=== PATIENT | female | born 1985 ===

== ENCOUNTER 2018-02-12 21:56 | Inpatient (IN) | payer MEDICARE, MEDICAID ==
--- NOTE | 2018-02-12 22:32 | ED PDOC ---
HPI: Psych/Substance Abuse Time Seen by Provider: 02/12/18 22:17 Chief Complaint (Nursing): Psychiatric Evaluation Chief Complaint (Provider): Suicidal thoughts History Per: Patient History/Exam Limitations: no limitations Onset/Duration Of Symptoms: Days (today) Additional Complaint(s): Suicidal thoughts. No act on it. No drugs or etoh. Taking her meds. No nausea, vomit, diarrhea. Not homicidal. No weakness. Past Medical History Reviewed: Nursing Documentation, Vital Signs Vital Signs: Last Vital Signs Temp 99.0 F 02/12/18 22:06 Pulse 101 H 02/12/18 22:06 Resp 18 02/12/18 22:06 BP 138/83 02/12/18 22:06 Pulse Ox 98 02/12/18 22:06 - Medical History PMH: Bipolar Disorder, Depression Denies: Diabetes, Hepatitis, HIV, HTN, Chronic Kidney Disease, Seizures, Sexually Transmitted Disease - Surgical History Surgical History: Appendectomy (October,) - Family History Family History: States: Unknown Family Hx, Hypertension - Immunization History Hx Tetanus Toxoid Vaccination: Yes Hx Influenza Vaccination: Yes Hx Pneumococcal Vaccination: No - Home Medications Home Medications: Ambulatory Orders Medication Instructions Recorded Asenapine Maleate [Saphris] 5 mg SL HS 11/22/15 ARIPiprazole [Abilify] 15 mg PO DAILY 03/24/16 Asenapine [Saphris] 5 mg SL DAILY #5 tab 08/29/16 - Allergies Allergies/Adverse Reactions: Allergies Allergy/AdvReac Type Severity Reaction Status Date / Time No Known Allergies Allergy Verified 01/18/16 17:50 Review of Systems ROS Statement: Except As Marked, All Systems Reviewed And Found Negative Psych: Positive for: Depression, Suicidal ideation Physical Exam - Reviewed Nursing Documentation Reviewed: Yes Vital Signs Reviewed: Yes - Physical Exam Appears: Positive for: Non-toxic, No Acute Distress Head Exam: Positive for: ATRAUMATIC, NORMAL INSPECTION, NORMOCEPHALIC Skin: Positive for: Normal Color, Warm, DRY Eye Exam: Positive for: EOMI, Normal appearance, PERRL ENT: Positive for: Normal ENT Inspection Neck: Positive for: Normal, Painless ROM Cardiovascular/Chest: Positive for: Regular Rate, Rhythm Respiratory: Positive for: CNT, Normal Breath Sounds Gastrointestinal/Abdominal: Positive for: Normal Exam, Soft. Negative for: Tenderness Back: Positive for: Normal Inspection. Negative for: L CVA Tenderness, R CVA Tenderness Extremity: Positive for: Normal ROM. Negative for: Tenderness, Pedal Edema Neurologic/Psych: Positive for: Alert, Oriented - ECG O2 Sat by Pulse Oximetry: 98 - Progress ED Course And Treament: 2355: Stable. Dr. Linda to fu crisis. Disposition - Clinical Impression Clinical Impression: Bipolar disorder - Patient ED Disposition Is Patient to be Admitted: Transfer of Care - Disposition Disposition Time: 23:55 Condition: STABLE Patient Signed Over To: Yasmani Linda
--- NOTE | 2018-02-13 00:05 | ED PDOC ---
- Laboratory Results Result Diagrams: 02/13/18 01:16 02/13/18 01:16 - ECG O2 Sat by Pulse Oximetry: 98 Medical Decision Making Medical Decision Makin:00 Patient endorsed to me by Dr. Menendez, pending crisis evaluation. 00:30 -patient was evaluated by crisis and will be admitted, diagnosis bipolar disorder per Dr. Urbina. 03:56 CXR no active disease 04:00 Vital signs are stable. Labs reviewed. In my opinion there are no current acute medical conditions that contraindicate the placement of this patient in a psychiatric unit. Disposition - Clinical Impression Clinical Impression: Bipolar disorder - POA Present On Arrival: None - Disposition Disposition: Routine/Home Disposition Time: 04:00 Condition: STABLE
[2018-02-13 01:40] LABS: BASO # 0.1 K/uL (0.0-0.2); BASO % 0.6 % (0.0-2.0); EOS # 0.3 K/uL (0.0-0.7); EOS % 1.9 % (0.0-4.0); HEMOGLOBIN 12.2 g/dL (12.0-16.0); LYMPH # 3.7 K/uL (1.0-4.3); LYMPH % 27.3 % (20.0-40.0); MEAN CELL VOLUME 81.2 fl (81.0-99.0); MEAN CORPUSCULAR HGB CONC 33.3 g/dL (33.0-37.0); MEAN PLATELET VOLUME 9.6 fl (7.2-11.7); MONO # 0.8 K/uL (0.0-0.8); MONO % 5.5 % (0.0-10.0); NEUT # 8.9 K/uL (1.8-7.0); NEUT % 64.7 % (50.0-75.0); NRBC % 0.1 % (0.0-0.0); RBC 4.53 Mil/uL (3.80-5.20); RED CELL DISTRIBUTION WIDTH 14.7 % (11.5-14.5); WHITE BLOOD COUNT 13.7 K/uL (4.8-10.8)
[2018-02-13 01:56] LABS: ALB/GLOB RATIO 1.4 (1.0-2.1); ALBUMIN 4.2 g/dL (3.5-5.0); ALT/SGPT 62 U/L (9-52); AST/SGOT 35 U/L (14-36); BLOOD UREA NITROGEN 11 mg/dl (7-17); CALCIUM 9.1 mg/dL (8.4-10.2); GFR AFRICAN-AMERICAN > 60; GFR NON-AFRICAN AMERICAN > 60
[2018-02-13 02:12] LABS: BARBITURATES, UR NEGATIVE (NEGATIVE); BENZODIAZEPINES, UR NEGATIVE (NEGATIVE); OPIATES, UR NEGATIVE (NEGATIVE); PHENCYCLIDINE, UR NEGATIVE (NEGATIVE)
[2018-02-13 05:26] LABS: SQUAMOUS EPITHIAL 14 /hpf (0-5); URINE BACTERIA RARE (<OCC); URINE BILIRUBIN NEGATIVE (NEGATIVE); URINE BLOOD NEGATIVE (NEGATIVE); URINE CLARITY CLOUDY (Clear); URINE COLOR YELLOW (YELLOW); URINE GLUCOSE (UA) NEG (Normal); URINE LEUKOCYTE ESTERASE TRACE Leu/uL (Negative); URINE PROTEIN 30 mg/dL (NEGATIVE); URINE UROBILINOGEN 0.2-1.0 mg/dL (0.2-1.0)
[2018-02-13 05:58] VITALS: O2SAT 99
[2018-02-13] MEDS ORDERED: Alum-Mag Hydrox-Simethicone Susp (30 mL) PO PRN (06:01)
[2018-02-13] MEDS ORDERED: Magnesium Hydroxide Susp 30 ml UD PO PRN (06:01)
[2018-02-13] MEDS ORDERED: DiphenhydrAMINE 50 mg/ml Inj IM PRN (06:01)
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
[2018-02-13 08:51] LABS: T4 7.6 ug/dl (5.5-11.0)
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
--- NOTE | 2018-02-13 14:20 | RAD ---
Date of service: 02/13/2018 HISTORY: admit COMPARISON: Chest radiograph 01/18/2016 theNo prior. FINDINGS: LUNGS: No active pulmonary disease. PLEURA: No significant pleural effusion identified, no pneumothorax apparent. CARDIOVASCULAR: Normal. OSSEOUS STRUCTURES: No significant abnormalities. VISUALIZED UPPER ABDOMEN: Normal. OTHER FINDINGS: None. IMPRESSION: No active disease.
[2018-02-13] MEDS ORDERED: ASENAPINE 10 MG SL SCH (22:00)
--- NOTE | 2018-02-14 10:09 | CARD ---
APPROVED REPORT Date of service: 02/13/2018 EKG Measurement Heart [id number] <Conclusion> Normal sinus rhythm with sinus arrhythmia Normal ECG
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
[2018-02-16] MEDS: SAPHRIS 10 MG PO SCH (21:02)
--- NOTE | 2018-02-17 15:43 | PCM.PYCHPN ---
Psychiatric Progress Note - Psychiatric Progress Note Patient seen today, length of contact: pt seen and evaluated Patient Chief Complaint: I feel better with saphris Problems Identified/Issues Discussed: pt evaluated, , more kempt, less labbile feeling less irritable, pt reported benefiting from groups and therapy, learning how to deal with her emotional loss , speech more organized and thought process more goal directed, reported feeling dizzy with seroquel will discontinue pt denied active suicidal ideation on the unit,denied command hallucinations DSM 5 Symptoms Update: bipolar disorder Medication Change: Yes (discontinue seroquel) Medical Record Reviewed: Yes Mental Status Examination - Cognitive Function Orientation: Person, Place Attention: WNL Concentration: WNL Association: WNL Fund of Knowledge: Poor Decription of patient's judgement and insights: poor insight and judgment - Mood Mood: Depressed, Anxious - Affect Affect: Constricted - Speech Speech: Loud, Pressured - Formal Thought Process Formal Thought Process: Circumstantial Psychotic Thoughts and Behaviors: pt denied any current perceptual disturbances, non elicited - Suicidal Ideation Suicidal Ideation: No - Homicidal Ideation Homicidal Ideation: No Goal/Treatment Plan - Goal/Treatment Plan Need for Continued Stay: Severe depression anxiety, Discharge may exacerbated symptoms, Failed transitioning Progress Toward Problem(s) and Goals/Treatment Plan: saphris 20mg qhs discontinue seroquel Group and supportive therapy
[2018-02-17] MEDS: SAPHRIS 10 MG PO SCH (21:02)
--- NOTE | 2018-02-18 06:59 | CP.PCM.PN ---
Subjective - Date & Time of Evaluation Date of Evaluation: 02/18/18 Time of Evaluation: 07:00 - Subjective Subjective: Pt is seen and examined, Pt slept comfortable, with no acute distress. Pt denies suicidal ideation at moment, and feel better. Pt was calm and awake ready to go for group activity. Pt denies Fever, headache, SOB, Chest pain, abd pain , diarrhea, constipation, dysuria, polyuria. Objective - Vital Signs/Intake and Output Vital Signs (last 24 hours): Temp Pulse Resp BP Pulse Ox 97.3 F L 93 H 20 144/90 99 02/17/18 17:00 02/17/18 17:00 02/17/18 17:00 02/17/18 17:00 02/13/18 05:56 - Medications Medications: Current Medications Acetaminophen (Tylenol 325mg Tab) 650 mg PO Q4 PRN PRN Reason: pain level 4-7 Al Hydrox/Mg Hydrox/Simethicone (Maalox Plus 30 Ml) 30 ml PO Q4 PRN PRN Reason: Dyspepsia Diphenhydramine HCl (Benadryl) 50 mg IM Q6 PRN PRN Reason: Extrapyramidal S/S Unable PO Diphenhydramine HCl (Benadryl) 50 mg PO Q6 PRN PRN Reason: Extrapyramidal Symptoms Diphenhydramine HCl (Benadryl) 50 mg PO HS PRN PRN Reason: Sleep Haloperidol (Haldol) 5 mg PO Q4 PRN PRN Reason: Agitation Haloperidol Lactate (Haldol) 5 mg IM Q4 PRN PRN Reason: Agitation, Unable to Take PO Home Med (Patient's Own Medication) 20 unit PO HS DRAKE Last Admin: 02/17/18 21:02 Dose: 20 unit Magnesium Hydroxide (Milk Of Magnesia) 30 ml PO HS PRN PRN Reason: Constipation Trazodone HCl (Desyrel) 50 mg PO HS PRN PRN Reason: Agitation - Labs Labs: 02/13/18 01:16 02/13/18 01:16 - Constitutional Appears: Well, Non-toxic, No Acute Distress - Head Exam Head Exam: ATRAUMATIC, NORMAL INSPECTION, NORMOCEPHALIC - Eye Exam Eye Exam: EOMI, Normal appearance, PERRL Pupil Exam: NORMAL ACCOMODATION, PERRL - ENT Exam ENT Exam: Mucous Membranes Moist, Normal Exam - Neck Exam Neck Exam: Full ROM, Normal Inspection - Respiratory Exam Respiratory Exam: Clear to Ausculation Bilateral, NORMAL BREATHING PATTERN - Cardiovascular Exam Cardiovascular Exam: REGULAR RHYTHM, +S1, +S2 - GI/Abdominal Exam GI & Abdominal Exam: Soft, Normal Bowel Sounds. absent: Tenderness - Extremities Exam Extremities Exam: Full ROM, Normal Capillary Refill, Normal Inspection - Back Exam Back Exam: NORMAL INSPECTION - Neurological Exam Neurological Exam: Alert, Awake, Oriented x3 - Psychiatric Exam Psychiatric exam: Normal Affect, Normal Mood - Skin Skin Exam: Dry, Intact, Normal Color, Warm Assessment and Plan (1) Insomnia Assessment & Plan: Pt is a 32 yo f with PMH bipolar and depression presented to ER due to Insomnia and suicidal ideation Plan Improved Continue management as per Psych Pt is medically stable lab WNL continue monitor for acute change Status: Acute (2) Depression Assessment & Plan: Pt is 32 yo f with PMH of depression was admitted due to suicidal ideation PLan Improved Continue management as per Psych Status: Chronic (3) Bipolar disorder Assessment & Plan: PT is 32 yo f with PMH bipolar disorder and depression was admitted due to suicidal ideation PLan Improved Continue management as per Psych Status: Chronic
[2018-02-18 08:39] VITALS: BP 132/79; PULSE 85; RESP 19; TEMP 97.5
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
== END 2018-02-18 12:11 | disposition home or self-care (01) | DRG 885 ==
LOC: H.ER 21:56 → H.ERHOLD 02-13 00:57 → H.PSYCH 02-13 05:58
PROVIDERS: ADMIT Psychiatry & Neurology Psychiatry; ATTEND Psychiatry & Neurology Psychiatry
PROC: GZHZZZZ Group Psychotherapy (ICD-10-PCS; principal; 2018-02-13)
PROC: GZ58ZZZ Individual Psychotherapy, Cognitive-Behavioral (ICD-10-PCS; 2018-02-13)
DX: F31.64 Bipolar disorder, current episode mixed, severe, with psychotic features (principal); R45.851 Suicidal ideations; G47.00 Insomnia, unspecified; E11.9 Type 2 diabetes mellitus without complications; Z81.8 Family history of other mental and behavioral disorders; Z79.84 Long term (current) use of oral hypoglycemic drugs

== ENCOUNTER 2018-08-06 01:38 | Inpatient (IN) | payer MEDICARE, OTHER ==
[2018-08-06 01:44] VITALS: O2SAT 98
--- NOTE | 2018-08-06 03:17 | ED PDOC ---
HPI: Psych/Substance Abuse Time Seen by Provider: 08/06/18 01:45 Chief Complaint (Nursing): Psychiatric Evaluation Chief Complaint (Provider): Psychiatric Evaluation History Per: Patient History/Exam Limitations: no limitations Associated Symptoms: Depression, Suicidal Thoughts Additional Complaint(s): 33 y/o female with history of bipolar disorder, depression and pre- diabetes presents to ER for evaluation of worsening depression and suicidal ideation for 2 months. Patient reports having no plan. PMD: non provided Past Medical History Reviewed: Historical Data, Nursing Documentation, Vital Signs Vital Signs: Last Vital Signs Temp 98.7 F 08/06/18 01:42 Pulse 99 H 08/06/18 01:42 Resp 18 08/06/18 01:42 BP 132/91 H 08/06/18 01:42 Pulse Ox 98 08/06/18 01:42 - Medical History PMH: Anxiety, Bipolar Disorder, Depression Denies: Diabetes, Hepatitis, HIV, HTN, Chronic Kidney Disease, Seizures, Sexually Transmitted Disease - Surgical History Surgical History: Appendectomy (October,) - Family History Family History: States: Unknown Family Hx, Hypertension - Social History Current smoker - smoking cessation education provided: No Alcohol: None Drugs: Denies - Immunization History Hx Tetanus Toxoid Vaccination: Yes Hx Influenza Vaccination: Yes Hx Pneumococcal Vaccination: No - Home Medications Home Medications: Ambulatory Orders Medication Instructions Recorded Asenapine [Saphris] 10 mg SL HS 02/13/18 traZODone [Desyrel] 50 mg PO HS PRN 30 Days #30 tab 02/18/18 - Allergies Allergies/Adverse Reactions: Allergies Allergy/AdvReac Type Severity Reaction Status Date / Time No Known Allergies Allergy Verified 01/18/16 17:50 Review of Systems ROS Statement: Except As Marked, All Systems Reviewed And Found Negative Psych: Positive for: Depression, Suicidal ideation Physical Exam - Reviewed Nursing Documentation Reviewed: Yes Vital Signs Reviewed: Yes - Physical Exam Appears: Positive for: Non-toxic, No Acute Distress Head Exam: Positive for: ATRAUMATIC, NORMOCEPHALIC Skin: Positive for: Normal Color, Warm, Dry Eye Exam: Positive for: Normal appearance, EOMI, PERRL Neck: Positive for: Normal, Painless ROM, Supple Cardiovascular/Chest: Positive for: Regular Rate, Rhythm. Negative for: Murmur Respiratory: Positive for: Normal Breath Sounds. Negative for: Wheezing Gastrointestinal/Abdominal: Positive for: Normal Exam, Soft. Negative for: Tenderness Back: Positive for: Normal Inspection. Negative for: L CVA Tenderness, R CVA Tenderness Extremity: Positive for: Normal ROM. Negative for: Pedal Edema, Swelling Neurologic/Psych: Positive for: Alert, Oriented (x3) - ECG O2 Sat by Pulse Oximetry: 98 (RA) Pulse Ox Interpretation: Normal Medical Decision Making Medical Decision Makin 33 y/o female with suicidal ideation insetting of bipolar and depression --crisis evaluation --1:1 Observation 0311 Patient evaluated by crisis and will be admitted for bipolar depression. Patient is stable for psychiatric evaluation. Scribe Attestation: Documented by Grace Herron, acting as a scribe for Yasmani Linda MD. Provider Scribe Attestation: All medical record entries made by the Scribe were at my direction and personally dictated by me. I have reviewed the chart and agree that the record accurately reflects my personal performance of the history, physical exam, medical decision making, and the department course for this patient. Disposition - Clinical Impression Clinical Impression: Bipolar depression - Patient ED Disposition Is Patient to be Admitted: Yes - Disposition Disposition Time: 03:11 Condition: FAIR Forms: [facility] (Algerian)
[2018-08-06 04:42] LABS: BASO # 0.1 K/uL (0.0-0.2); BASO % 0.7 % (0.0-2.0); EOS # 0.3 K/uL (0.0-0.7); EOS % 2.3 % (0.0-4.0); HEMOGLOBIN 12.3 g/dL (12.0-16.0); LYMPH # 4.2 K/uL (1.0-4.3); LYMPH % 36.4 % (20.0-40.0); MEAN CELL VOLUME 81.5 fl (81.0-99.0); MEAN CORPUSCULAR HEMOGLOBIN 27.1 pg (27.0-31.0); MEAN CORPUSCULAR HGB CONC 33.2 g/dL (33.0-37.0); MEAN PLATELET VOLUME 9.9 fl (7.2-11.7); MONO # 0.6 K/uL (0.0-0.8); MONO % 5.1 % (0.0-10.0); NEUT # 6.4 K/uL (1.8-7.0); NEUT % 55.5 % (50.0-75.0); NRBC % 0.1 % (0.0-0.0); RBC 4.53 Mil/uL (3.80-5.20); RED CELL DISTRIBUTION WIDTH 15.1 % (11.5-14.5); WHITE BLOOD COUNT 11.5 K/uL (4.8-10.8)
[2018-08-06 05:15] LABS: BARBITURATES, UR NEGATIVE (NEGATIVE); BENZODIAZEPINES, UR NEGATIVE (NEGATIVE); OPIATES, UR NEGATIVE (NEGATIVE); PHENCYCLIDINE, UR NEGATIVE (NEGATIVE)
[2018-08-06 05:39] LABS: ALB/GLOB RATIO 1.4 (1.0-2.1); ALBUMIN 4.4 g/dL (3.5-5.0); ALT/SGPT 72 U/L (9-52); AST/SGOT 47 U/L (14-36); BLOOD UREA NITROGEN 14 mg/dl (7-17); CALCIUM 9.4 mg/dL (8.4-10.2); GFR NON-AFRICAN AMERICAN > 60
[2018-08-06] MEDS ORDERED: Haloperidol Lactate 2 mg/ml Liquid PO PRN (06:58)
[2018-08-06] MEDS ORDERED: DiphenhydrAMINE 50 mg/ml Inj IM PRN (06:58)
[2018-08-06] MEDS ORDERED: Magnesium Hydroxide Susp 30 ml UD PO PRN (06:58)
[2018-08-06] MEDS ORDERED: Alum-Mag Hydrox-Simethicone Susp (30 mL) PO PRN (06:58)
--- NOTE | 2018-08-06 08:03 | RAD ---
Date of service: 08/06/2018 HISTORY: admit COMPARISON: No prior. FINDINGS: LUNGS: No active pulmonary disease. PLEURA: No significant pleural effusion identified, no pneumothorax apparent. CARDIOVASCULAR: No aortic atherosclerotic calcification present. Normal cardiac size. No pulmonary vascular congestion. OSSEOUS STRUCTURES: No significant abnormalities. VISUALIZED UPPER ABDOMEN: Normal. OTHER FINDINGS: None. IMPRESSION: No active disease.
--- NOTE | 2018-08-06 14:54 | CP.PCM.CON ---
History of Present Illness - History of Present Illness History of Present Illness: 33 yo female with history of Bipolar DO admitted to psyche unit because of worsening depression. Review of Systems - Review of Systems All systems: reviewed and no additional remarkable complaints except (aside from those mentioned above, 12 pomt system review negative by me) Past Patient History - Infectious Disease Hx of Infectious Diseases: None - Tetanus Immunizations Tetanus Immunization: Unknown - Past Medical History & Family History Past Medical History?: Yes - Past Social History Smoking Status: Never Smoked Chewing Tobacco Use: No Cigar Use: No Alcohol: None Drugs: Denies - CARDIAC Hx Cardiac Disorders: No Hx Hypertension: No - PULMONARY Hx Tuberculosis: No - NEUROLOGICAL HX Cerebrovascular Accident: No Hx Seizures: No - HEENT Hx HEENT Problems: No - RENAL Hx Chronic Kidney Disease: No - ENDOCRINE/METABOLIC Hx Diabetes Mellitus Type 2: Yes (metformin) - HEMATOLOGICAL/ONCOLOGICAL Hx Cancer: No Hx Human Immunodeficiency Virus (HIV): No - INTEGUMENTARY Hx Dermatological Problems: No - MUSCULOSKELETAL/RHEUMATOLOGICAL Hx Musculoskeletal Disorders: No - GASTROINTESTINAL Hx Gastrointestinal Disorders: No - GENITOURINARY/GYNECOLOGICAL Hx Sexually Transmitted Disorders: No - PSYCHIATRIC Hx Bipolar Disorder: Yes Hx Depression: Yes Hx Substance Use: No - SURGICAL HISTORY Hx Appendectomy: Yes (October,) - ANESTHESIA Hx Anesthesia: Yes Hx Anesthesia Reactions: No Hx Malignant Hyperthermia: No Meds Allergies/Adverse Reactions: Allergies Allergy/AdvReac Type Severity Reaction Status Date / Time No Known Allergies Allergy Verified 01/18/16 17:50 - Medications Medications: Current Medications Acetaminophen (Tylenol 325mg Tab) 650 mg PO Q4 PRN PRN Reason: pain 1-7 Al Hydrox/Mg Hydrox/Simethicone (Maalox Plus 30 Ml) 30 ml PO Q4 PRN PRN Reason: Dyspepsia Diphenhydramine HCl (Benadryl) 50 mg IM Q6 PRN PRN Reason: Extrapyramidal S/S Unable PO Diphenhydramine HCl (Benadryl) 50 mg PO Q6 PRN PRN Reason: Extrapyramidal Symptoms Diphenhydramine HCl (Benadryl) 50 mg PO HS PRN PRN Reason: Sleep Haloperidol Lactate (Haldol) 5 mg PO Q4 PRN PRN Reason: Agitation Haloperidol Lactate (Haldol) 5 mg IM Q4 PRN PRN Reason: Agitation, Unable to Take PO Lorazepam (Ativan) 2 mg IM Q6 PRN PRN Reason: Anxiety/Agitation,Unable PO Lorazepam (Ativan) 1 mg PO Q8 PRN PRN Reason: Anxiety/Agitation Magnesium Hydroxide (Milk Of Magnesia) 30 ml PO HS PRN PRN Reason: Constipation Physical Exam - Constitutional Appears: No Acute Distress - Head Exam Head Exam: ATRAUMATIC - Eye Exam Eye Exam: absent: Scleral icterus - ENT Exam ENT Exam: Mucous Membranes Moist - Neck Exam Neck exam: Negative for: Meningismus - Respiratory Exam Respiratory Exam: absent: Rales, Rhonchi, Wheezes, Respiratory Distress - Cardiovascular Exam Cardiovascular Exam: REGULAR RHYTHM, +S1, +S2 - GI/Abdominal Exam GI & Abdominal Exam: Soft. absent: Tenderness - Rectal Exam Rectal Exam: Deferred - Extremities Exam Extremities exam: Negative for: pedal edema - Neurological Exam Neurological exam: Alert, Oriented x3 - Psychiatric Exam Psychiatric exam: Anxious - Skin Skin Exam: Dry, Intact Results - Vital Signs Recent Vital Signs: Last Vital Signs Temp 98.1 F 08/06/18 06:51 Pulse 840 H 08/06/18 08:38 Resp 16 08/06/18 08:38 BP 112/61 08/06/18 06:51 Pulse Ox 98 08/06/18 06:06 - Labs Result Diagrams: 08/06/18 04:30 08/06/18 04:30 Labs: Laboratory Results - last 24 hr 08/06/18 08/06/18 08/06/18 04:30 04:30 04:30 WBC 11.5 H RBC 4.53 Hgb 12.3 Hct 37.0 MCV 81.5 MCH 27.1 MCHC 33.2 RDW 15.1 H Plt Count 286 MPV 9.9 Neut % (Auto) 55.5 Lymph % (Auto) 36.4 [place] % (Auto) 5.1 Eos % (Auto) 2.3 Baso % (Auto) 0.7 Neut # (Auto) 6.4 Lymph # (Auto) 4.2 [place] # (Auto) 0.6 Eos # (Auto) 0.3 Baso # (Auto) 0.1 Sodium 139 Potassium 3.5 L Chloride 103 Carbon Dioxide 23 Anion Gap 17 BUN 14 Creatinine 0.6 L Est GFR ( Amer) > 60 Est GFR (Non-Af Amer) > 60 Random Glucose 128 H Calcium 9.4 Total Bilirubin 0.2 AST 47 H D ALT 72 H Alkaline Phosphatase 81 Total Protein 7.6 Albumin 4.4 Globulin 3.2 Albumin/Globulin Ratio 1.4 Urine Opiates Screen Negative Urine Methadone Screen Negative Ur Barbiturates Screen Negative Ur Phencyclidine Scrn Negative Ur Amphetamines Screen Negative U Benzodiazepines Scrn Negative U Oth Cocaine Metabols Negative U Cannabinoids Screen Negative Alcohol, Quantitative < 10 Assessment & Plan (1) Depression Status: Chronic Comment: psyche is managing
--- NOTE | 2018-08-06 15:33 | PCM.BM ---
<IsabelLeojenniferKaitlinTyler Tova - Last Filed: 08/06/18 15:35> Treatment assets and liabiliti Patient Assests: cooperative, ADL independent, physically healthy, good support system, negotiates basic needs, cognitively intact Patient Liabilities: relationship conflicts, medical problems - Milieu Protocol Maintain good personal hygiene: daily Encourage regular showers, daily Remind patient to perform daily oral care, daily Assist patient to perform ADL's Conduct patient checks and document Observation sheet: Q15 minutes Maintain personal safety: every shift Educate patient to report safety concerns to staff, every shift Monitor environment for contraband/sharps Medication safety: Monitor for expected outcome, potential side effects: daily, Assess barriers to learning: daily, Assess readiness for medication education: daily <Pablo Lyles - Last Filed: 08/10/18 13:31> Family Contact Family involvement: Family/SO is involved Family contact: Patient agrees to contact, Family has been contacted by patient, Telephone contact initiated by staff Family contact name: Estephania - Mother [phone] Family contact comment: Muff Winder met with pt to discuss pt's treatment on unit. Pt's mother reported that pt had been fine prior to hospitalization and she had not noticed any change on her behavior. Estephania had no questions or comments at this time. - Goals for Treatment Patient goals for treatment: Pt would like to be connected to a therapist to help her manage her obsessive thoughts, find closure and move on with her live life. Discharge/Continuing Care - Education Needs Education Needs: Family Medication, Family Diagnosis/Disease Process, Family Coping Skills, Family Community resources, Family Aftercare Safety Plan, Patient Medication, Patient Diagnosis/Disease Process, Patient Coping Skills, Patient Community resources, Patient Aftercare Safety Plan - Discharge Discharge Criteria: Tolerates medication w/o severe side effects, Free of Suicidal thoughts, Free of paranoid thoughts, Free of agitation, Normal sleep pattern, Reduction of target symptoms Discharge to:: Home, With Family - Treatment Team Participation Patient/Family/SO Statement: 08/10/18 13:30 Pt seen in treatment team on 08/09/18. Pt reported she would like to leave the unit as she no longer has acute symptoms and she has realized that she requires therapy to work on her past trauma. Pt has signed a 48 hour notice and does not meet criteria [place] [facility] [place], so she is being discharged to current outpatient providers. Discussed with Family/SO: Yes Was Patient/Family/SO present at Treatment Team Meeting: Yes
[2018-08-06] MEDS: SAPHRIS 10 MG PO SCH (21:31)
--- NOTE | 2018-08-06 22:19 | PCM.PSYCH ---
Initial Psychiatric Evaluation - Initial Psychiatric Evaluation Chief Complaint (in patient's own words): came to hospital after have a "bipoplar episode" described as becoming overwhelmed " Patient's Reaction to Hospitalization: signed voluntarily History of Present Illness and Precipitating Events: history of inpt and opd treatment for bipolar disorder Current Medications: Active Medications Generic Name Dose Route Start Last Admin Trade Name Freq PRN Reason Stop Dose Admin Acetaminophen 650 mg 08/06/18 06:58 Tylenol 325mg Tab PO Q4 PRN pain 1-7 Al Hydrox/Mg Hydrox/Simethicone 30 ml 08/06/18 06:58 Maalox Plus 30 Ml PO Q4 PRN Dyspepsia Diphenhydramine HCl 50 mg 08/06/18 06:58 Benadryl IM Q6 PRN Extrapyramidal S/S Unable PO Diphenhydramine HCl 50 mg 08/06/18 06:58 Benadryl PO Q6 PRN Extrapyramidal Symptoms Diphenhydramine HCl 50 mg 08/06/18 06:58 08/06/18 21:32 Benadryl PO 50 mg HS PRN Administration Sleep Haloperidol Lactate 5 mg 08/06/18 06:58 Haldol PO Q4 PRN Agitation Haloperidol Lactate 5 mg 08/06/18 06:58 Haldol IM Q4 PRN Agitation, Unable to Take PO Home Med 2 unit 08/06/18 22:00 08/06/18 21:31 Patient's Own Medication PO 2 unit HS DRAKE Administration Lorazepam 2 mg 08/06/18 06:58 Ativan IM Q6 PRN Anxiety/Agitation,Unable PO Lorazepam 1 mg 08/06/18 06:58 Ativan PO Q8 PRN Anxiety/Agitation Magnesium Hydroxide 30 ml 08/06/18 06:58 Milk Of Magnesia PO HS PRN Constipation Past Psychiatric History - Past Psychiatric History Prior Professional Help: inpt/opd History of Abuse: denies History of ETOH/Drug Use: denies History of Family Illness: believes Pertinent Medical Hx (Current Medical&Sleep Prob, Allergies): Allergies Allergy/AdvReac Type Severity Reaction Status Date / Time No Known Allergies Allergy Verified 01/18/16 17:50 Asenapine [Saphris] 10 mg SL HS 02/13/18 Review of Systems - Psychiatric Psychiatric: Abnormal Sleep Pattern, Anxiety, Depression, Mood Swings, Suicidal Ideation Additional comments: without plan contracts for safety Mental Status Examination - Personal Presentation Personal Presentation: Looks stated age - Affect Affect: Constricted - Motor Activity Motor Activity: Psychomotor Retardation - Reliability in Providing Information Reliability in Providing Information: Fair - Speech Speech: Organized - Mood Mood: Depressed, Anxious - Formal Thought Process Formal Thought Process: No Impairment - Obsessions/Compulsions Obsessions: No Compulsions: No - Cognitive Functions Orientation: Person, Place, Situation Sensorium: Alert Attention/Concentration: Attentive Memory: Recent intact, as evidence by: Other, Remote intact, as evidenced by: Other - Risk Risk: Suicidal - Strength & Assets Inventory Strength & Assets Inventory: Intelligence, Cooperative DSM 5 DX - DSM 5 DSM 5 Diagnosis: Bipolar I - Recommended/Plan of Treatment Treatment Recommendations and Plan of Treatment: inpt adm per attending vital signs/clinical observation per protocol-per clinical status prns per protocol restart saphris 10mg x2 po hospitalist consult team to obtain corroborative information discharge planning Projected ELOS: 5-7 days Prognosis: guarded Discharge Plan and Discharge Criteria: safety - Smoking Cessation Smoking Cessation Initiated: No Reason for not providing: defered
--- NOTE | 2018-08-06 22:55 | CARD ---
APPROVED REPORT Date of service: 08/06/2018 EKG Measurement Heart [id number] <Conclusion> Normal sinus rhythm Normal ECG
[2018-08-07 07:37] LABS: LDL CHOLESTEROL 100 mg/dL (0-129)
[2018-08-07 07:38] LABS: BLOOD UREA NITROGEN 10 mg/dl (7-17); CALCIUM 9.2 mg/dL (8.4-10.2); GFR NON-AFRICAN AMERICAN > 60; HDL CHOLESTEROL 47 MG/DL (30-70)
[2018-08-07 07:42] LABS: T4 7.61 ug/dl (5.5-11.0)
--- NOTE | 2018-08-07 19:24 | PCM.PYCHPN ---
Psychiatric Progress Note - Psychiatric Progress Note Patient seen today, length of contact: chart reviewed case discussed with Patient Chief Complaint: pt seen in milieu, reports doing a little better somewhat calmer, slept fair, had visit with mother, staff report pt rx adherent Problems Identified/Issues Discussed: alteration in mood alteration in coping Medical Problems: pt chart Diagnostic Results: per medicine per psychiatry per nursing per social work per recreational therapy DSM 5 Symptoms Update: some improvement mood Medication Change: No Medical Record Reviewed: Yes Consults ordered or reviewed: pt seen by hospitalist Mental Status Examination - Cognitive Function Orientation: Person, Place, Situation Attention: WNL Concentration: WNL Association: [facility] Fund of Knowledge: [facility] Decription of patient's judgement and insights: impaired - Mood Mood: Depressed, Anxious - Affect Affect: Constricted Additional comments: some improvement but remains with anxiety depression - Speech Speech: Soft - Formal Thought Process Formal Thought Process: No Impairment - Suicidal Ideation Plan: contracts for safety - Homicidal Ideation Homicidal Ideation: No Goal/Treatment Plan - Goal/Treatment Plan Need for Continued Stay: Severe depression anxiety, Discharge may exacerbated symptoms Progress Toward Problem(s) and Goals/Treatment Plan: inpt adm per attending vital signs/clinical observation per protocol-per clinical status prns per protocol continue saphris 20mg po hs (pt restarted 08/08/17)-pt requests to be referred to psychotherapy pt seen byhospitalist consult discharge planning Estimated Date of D/C: 08/12/18 - Smoking Cessation Smoking Cessation Initiated: No Reason for not providing: pt defers
[2018-08-07] MEDS: SAPHRIS 10 MG PO SCH (21:33)
--- NOTE | 2018-08-08 14:51 | PCM.PYCHPN ---
Psychiatric Progress Note - Psychiatric Progress Note Patient seen today, length of contact: chart reviewed case discussed with team pt seen Patient Chief Complaint: pt reports spoke to mother, mother reportedly has identified a psychologist with whom she(pt) can see this coming wednesday. pt states she has submitted a 48 hour notice. discussed with pt the purpose of 48 hour notice, significance and potential outsomes discharge or evaluation for possible involuntary commitment. pt defers having had any direct contact with the reported psychologist with whom pt. reportedly has an appointment with this coming wednesday. "my mother told me she sounded like she was a kind nice person". pt has been adherent with medications. seen in unit. Problems Identified/Issues Discussed: alteration in mood alteration in coping Medical Problems: pt chart Diagnostic Results: per medicine per psychiatry per nursing per social work per recreational therapy DSM 5 Symptoms Update: admits mood has been more stable, sleep is improving Medication Change: No Medical Record Reviewed: Yes Consults ordered or reviewed: pt evaluated by hospitalist upon admission Mental Status Examination - Cognitive Function Orientation: Person, Place, Situation, Time Attention: WNL Concentration: WNL Association: WNL Fund of Knowledge: WN Decription of patient's judgement and insights: impaired - Mood Mood: Anxious Additional comments: "i just want to talk to someone a therapist on a rregular basis i have kept things in and just want to talk about them" - Affect Affect: Constricted - Speech Additional comments: somewhat pressured - Formal Thought Process Formal Thought Process: No Impairment - Suicidal Ideation Suicidal Ideation: No Plan: admits that she does not - Homicidal Ideation Homicidal Ideation: No Goal/Treatment Plan - Goal/Treatment Plan Need for Continued Stay: Severe depression anxiety, Discharge may exacerbated symptoms Progress Toward Problem(s) and Goals/Treatment Plan: inpt milieu pt submitted a 48 hour notice to team this morning, pt to remain until team members can assess control given that it is reported that mother reported spoke to a license psychologist about pt and reportedly gave pt 's mother an appointment for pt. this coming wednesday vital signs/clinical observation per protocol-per clinical status adjust medicines per clinical status pt seen byhospitalist consult discharge planning Estimated Date of D/C: 08/12/18 - Smoking Cessation Smoking Cessation Initiated: No Reason for not providing: defers
[2018-08-08 18:29] VITALS: RESP 20
[2018-08-08] MEDS: SAPHRIS 10 MG PO SCH (21:00)
[2018-08-09 09:15] VITALS: BP 136/83; PULSE 126; TEMP 97
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
== END 2018-08-09 14:43 | disposition short-term general hospital (02) | DRG 885 ==
LOC: H.ER 01:38 → H.ERHOLD 03:32 → H.PSYCH 06:55
PROVIDERS: ADMIT Psychiatry & Neurology Psychiatry; ATTEND Psychiatry & Neurology Psychiatry
PROC: GZHZZZZ Group Psychotherapy (ICD-10-PCS; principal; 2018-08-06)
PROC: GZ58ZZZ Individual Psychotherapy, Cognitive-Behavioral (ICD-10-PCS; 2018-08-06)
PROC: GZ56ZZZ Individual Psychotherapy, Supportive (ICD-10-PCS; 2018-08-06)
DX: F25.0 Schizoaffective disorder, bipolar type (principal); R45.851 Suicidal ideations; G47.00 Insomnia, unspecified; Z91.14 Patient's other noncompliance with medication regimen; Z79.84 Long term (current) use of oral hypoglycemic drugs; R73.03 Prediabetes